=== PATIENT | male | born 1940 | race Caucasian/White ===

== ENCOUNTER 2020-04-12 07:12 | Day surgery (SDC) | payer MEDICARE, OTHER ==
[2020-04-12] MEDS: Polymyxin B/Trimethoprim 10 ML Bottle EYELF SCH ×4 (07:15→08:47)
[2020-04-12] MEDS: Brimonidine 0.2% Ophth Soln 5 ML Bottle EYELF SCH ×4 (07:19→08:47)
[2020-04-12] MEDS: Phenylephrine 2.5% Ophth Soln 2 ML Bot EYELF SCH ×4 (07:23→07:55)
[2020-04-12] MEDS: Tropicamide 1% Ophth Soln 15 ML Bottle EYELF SCH ×4 (07:27→07:59)
[2020-04-12] MEDS: Phenylephrine 2.5% Ophth Soln 15 ML Bot EYELF SCH ×2 (07:31→08:25)
[2020-04-12] MEDS: Cefuroxime 10 MG/ML SYRINGE EYELF SCH ×2 (07:32→08:46)
[2020-04-12] MEDS: Tetracaine HCl/PF 0.5% 4 ML Bottle EYEBOTH SCH ×3 (07:32→08:31)
[2020-04-12] MEDS: Lidocaine 1% PF 2 ML SDV INJECT SCH ×2 (07:32→08:32)
[2020-04-12] MEDS: Pilocarpine 4% Ophth Soln 15 ML Bot EYELF SCH ×2 (07:33→08:47)
--- NOTE | 2020-04-12 07:41 | PCM.PREANE ---
Preanesthetic Assessment - Procedure Proposed Procedure: Left Cataract - Anesthesia/Transfusion/Family Hx Anesthesia History: Prior Anesthesia Without Reaction Family History of Anesthesia Reaction: No Transfusion History: No Prior Transfusion(s) Intubation History: Unknown - Review of Systems General: No Symptoms Pulmonary: No Symptoms (quit smoking 1989) Cardiovascular: No Symptoms (CAD, HTN-CABG times 4) Gastrointestinal: No Symptoms Neurological: No Symptoms Other: Reports: None, Easy Bleeding, Easy Bruising - Physical Assessment NPO Status Date: 04/11/20 NPO Status Time: 21:00 Vital Signs: Last Vital Signs Temp 36.5 C 04/12/20 07:10 Pulse 68 04/12/20 07:10 Resp 16 04/12/20 07:10 BP 129/63 04/12/20 07:10 Pulse Ox 99 04/12/20 07:10 Height: 1.75 m Weight: 68.039 kg ASA Class: 3 Mental Status: Alert & Oriented x3 Airway Class: Mallampati = 2 Dentition: Reports: Dentures (upper and lower) Thyro-Mental Finger Breadths: 3 Mouth Opening Finger Breadths: 3 ROM/Head Extension: Full Lungs: Clear to Auscultation, Normal Respiratory Effort Cardiovascular: Regular Rate, Regular Rhythm, No Murmurs - Allergies Allergies/Adverse Reactions: Allergies Allergy/AdvReac Type Severity Reaction Status Date / Time No Known Allergies Allergy Verified 04/11/20 15:31 - Anesthesia Plan Pre-Op Medication Ordered: None - Acknowledgements Anesthesia Type Planned: MAC Pt an Appropriate Candidate for the Planned Anesthesia: Yes Alternatives and Risks of Anesthesia Discussed w Pt/Guardian: Yes Pt/Guardian Understands and Agrees with Anesthesia Plan: Yes PreAnesthesia Questionnaire - Past Surgical History Other GI Surgeries/Procedures: Stomach ulcer surgery - HOME MEDS Home Medications: Home Meds Warfarin [Coumadin] 5 mg PO DAILY 01/03/15 [History] Lisinopril 5 mg PO DAILY 07/20/15 [History] amLODIPine [Norvasc] 5 mg PO DAILY 07/20/15 [History] Aspirin [Halfprin] 81 mg PO DAILY 04/11/20 [History] Calcium Carb/Vitamin D3/Vit K1 [Calcium + D Soft Chewable Tab] 1 tab PO DAILY [History] Ezetimibe [Zetia] 10 mg PO DAILY 04/11/20 [History] Magnesium Oxide/Magnesium [Magnesium] 300 mg PO DAILY 04/11/20 [History] Multivitamin 1 tab PO DAILY 04/11/20 [History] Turmeric 400 mg PO DAILY 04/11/20 [History] Ubidecarenone [Coq-10] 400 mg PO DAILY 04/11/20 [History] - CURRENT (IN HOUSE) MEDS Current Meds: Current Medications Brimonidine Tartrate (Alphagan 0.2% Ophth Soln) 0 ml EYELF ASDIRECTED LAURA Stop: 04/12/20 18:00 Last Admin: 04/12/20 07:19 Dose: 1 drop Cefuroxime Sodium (Zinacef) 0 mg EYELF ASDIRECTED LAURA Stop: 04/12/20 18:00 Lidocaine HCl (Xylocaine-Mpf 1%) 0 ml INJECT ASDIRECTED LAURA Stop: 04/12/20 18:00 Phenylephrine HCl (Trevor-Synephrine 2.5% Ophth Soln) 0 ml EYELF ASDIRECTED LAURA Stop: 04/12/20 23:00 Last Admin: 04/12/20 07:23 Dose: 1 drop Pilocarpine HCl (Pilocar 4% Ophth Soln) 0 ml EYELF ASDIRECTED LAURA Stop: 04/12/20 18:00 Polymyxin/Trimethoprim Sulfate (Polytrim Ophth Soln) 0 ml EYELF ASDIRECTED LAURA Stop: 04/12/20 18:00 Last Admin: 04/12/20 07:15 Dose: 1 drop Tetracaine HCl (Tetracaine 0.5% Steri-Unit Brianna) 0 ml EYEBOTH ASDIRECTED LAURA Stop: 04/12/20 18:00 Tropicamide (Mydriacyl 1% Ophth Soln) 0 ml EYELF ASDIRECTED LAURA Stop: 04/12/20 18:00 Last Admin: 04/12/20 07:27 Dose: 1 drop Discontinued Medications Phenylephrine HCl (Trevor-Synephrine 2.5% Ophth Soln) 0 ml EYELF ASDIRECTED LAURA Stop: 04/12/20 18:00
--- NOTE | 2020-04-12 08:50 | PCM48HPAN ---
Post Anesthesia Note - EVALUATION WITHIN 48HRS OF ANESTHETIC Vital Signs in Normal Range: Yes Patient Participated in Evaluation: Yes Respiratory Function Stable: Yes Airway Patent: Yes Cardiovascular Function Stable: Yes Hydration Status Stable: Yes Pain Control Satisfactory: Yes Nausea and Vomiting Control Satisfactory: Yes Mental Status Recovered: Yes Vital Signs: Last Vital Signs Temp 36.5 C 04/12/20 07:10 Pulse 68 04/12/20 07:10 Resp 16 04/12/20 07:10 BP 129/63 04/12/20 07:10 Pulse Ox 99 04/12/20 07:10
[2020-04-12 09:04] VITALS: BP 122/66; PULSE 65
== END 2020-04-12 09:00 | disposition home or self-care (01) ==
LOC: JD.SDS 07:12
PROVIDERS: ATTEND Ophthalmology
DX: H25.813 Combined forms of age-related cataract, bilateral (principal); H21.81 Floppy iris syndrome; H21.42 Pupillary membranes, left eye; I10 Essential (primary) hypertension; I25.10 Atherosclerotic heart disease of native coronary artery without angina pectoris; Z95.1 Presence of aortocoronary bypass graft; Z79.01 Long term (current) use of anticoagulants; Z87.891 Personal history of nicotine dependence; Z79.82 Long term (current) use of aspirin; Z79.899 Other long term (current) drug therapy
CPT/HCPCS: 66982; J0697; J2001; C1780

== ENCOUNTER 2020-05-10 07:57 | Day surgery (SDC) | payer MEDICARE, OTHER ==
[~2020-05-10 07:57] MED LIST: Cefuroxime 10 MG/ML SYRINGE EYERT SCH; Lidocaine 1% PF 2 ML SDV INJECT SCH; Pilocarpine 4% Ophth Soln 15 ML Bot EYERT SCH
[2020-05-10] MEDS: Polymyxin B/Trimethoprim 10 ML Bottle EYERT SCH ×3 (08:26→10:35)
[2020-05-10] MEDS: Brimonidine 0.2% Ophth Soln 5 ML Bottle EYERT SCH ×3 (08:31→10:35)
--- NOTE | 2020-05-10 08:32 | PCM.PREANE ---
Preanesthetic Assessment - Procedure Proposed Procedure: Right eye cataract extraction with IOL - Anesthesia/Transfusion/Family Hx Anesthesia History: Prior Anesthesia Without Reaction Family History of Anesthesia Reaction: No Transfusion History: No Prior Transfusion(s) Intubation History: Unknown - Review of Systems General: No Symptoms Pulmonary: No Symptoms Cardiovascular: No Symptoms Gastrointestinal: No Symptoms Neurological: No Symptoms Other: Reports: Easy Bruising - Physical Assessment NPO Status Date: 05/09/20 NPO Status Time: 00:00 Height: 1.75 m Weight: 66.678 kg ASA Class: 2 Mental Status: Alert & Oriented x3 Airway Class: Mallampati = 1 Dentition: Reports: Dentures Thyro-Mental Finger Breadths: 3 Mouth Opening Finger Breadths: 3 ROM/Head Extension: Full Lungs: Clear to Auscultation, Normal Respiratory Effort Cardiovascular: Regular Rate, Regular Rhythm - Allergies Allergies/Adverse Reactions: Allergies Allergy/AdvReac Type Severity Reaction Status Date / Time No Known Allergies Allergy Verified 05/09/20 15:23 - Blood Blood Available: No Product(s) Available: None - Anesthesia Plan Pre-Op Medication Ordered: None - Acknowledgements Anesthesia Type Planned: MAC Pt an Appropriate Candidate for the Planned Anesthesia: Yes Alternatives and Risks of Anesthesia Discussed w Pt/Guardian: Yes Pt/Guardian Understands and Agrees with Anesthesia Plan: Yes PreAnesthesia Questionnaire - Past Surgical History Other GI Surgeries/Procedures: Stomach ulcer surgery - SUBSTANCE USE Smoking Status *Q: Former Smoker Tobacco Use Within Last Twelve Months: No Second Hand Smoke Exposure: No Days Per Week of Alcohol Use: 1 Number of Drinks Per Day: 0 Total Drinks Per Week: 0 Recreational Drug Use History: No - HOME MEDS Home Medications: Home Meds Warfarin [Coumadin] 5 mg PO DAILY 01/03/15 [History] Lisinopril 5 mg PO DAILY 07/20/15 [History] amLODIPine [Norvasc] 5 mg PO DAILY 07/20/15 [History] Aspirin [Halfprin] 81 mg PO DAILY 04/11/20 [History] Calcium Carb/Vitamin D3/Vit K1 [Calcium + D Soft Chewable Tab] 1 tab PO DAILY [History] Ezetimibe [Zetia] 10 mg PO DAILY 04/11/20 [History] Magnesium Oxide/Magnesium [Magnesium] 300 mg PO DAILY 04/11/20 [History] Multivitamin 1 tab PO DAILY 04/11/20 [History] Turmeric 400 mg PO DAILY 04/11/20 [History] Ubidecarenone [Coq-10] 400 mg PO DAILY 04/11/20 [History] - CURRENT (IN HOUSE) MEDS Current Meds: Current Medications Brimonidine Tartrate (Alphagan 0.2% Ophth Soln) 0 ml EYERT ASDIRECTED LAURA Stop: 05/10/20 18:00 Cefuroxime Sodium (Zinacef) 0 mg EYERT ASDIRECTED LAURA Stop: 05/10/20 18:00 Lidocaine HCl (Xylocaine-Mpf 1%) 0 ml INJECT ASDIRECTED LAURA Stop: 05/10/20 18:00 Phenylephrine HCl (Trevor-Synephrine 2.5% Ophth Soln) 0 ml EYERT ASDIRECTED LAURA Stop: 05/10/20 18:00 Pilocarpine HCl (Pilocar 4% Ophth Soln) 0 ml EYERT ASDIRECTED LAURA Stop: 05/10/20 18:00 Polymyxin/Trimethoprim Sulfate (Polytrim Ophth Soln) 0 ml EYERT ASDIRECTED LAURA Stop: 05/10/20 18:00 Tetracaine HCl (Tetracaine 0.5% Steri-Unit Brianna) 0 ml EYEBOTH ASDIRECTED LAURA Stop: 05/10/20 18:00 Tropicamide (Mydriacyl 1% Ophth Soln) 0 ml EYERT ASDIRECTED LAURA Stop: 05/10/20 18:00
[2020-05-10] MEDS: Phenylephrine 2.5% Ophth Soln 2 ML Bot EYERT SCH ×5 (08:35→10:14)
[2020-05-10] MEDS: Tropicamide 1% Ophth Soln 15 ML Bottle EYERT SCH ×4 (08:39→09:20)
[2020-05-10] MEDS: Tetracaine HCl/PF 0.5% 4 ML Bottle EYEBOTH SCH ×4 (09:55→10:21)
--- NOTE | 2020-05-10 10:38 | PCM48HPAN ---
Post Anesthesia Note - EVALUATION WITHIN 48HRS OF ANESTHETIC Vital Signs in Normal Range: Yes Patient Participated in Evaluation: Yes Respiratory Function Stable: Yes Airway Patent: Yes Cardiovascular Function Stable: Yes Hydration Status Stable: Yes Pain Control Satisfactory: Yes Nausea and Vomiting Control Satisfactory: Yes Mental Status Recovered: Yes Vital Signs: Last Vital Signs Temp 36.4 C 05/10/20 08:05 Pulse 59 L 05/10/20 08:05 Resp 18 05/10/20 08:05 BP 135/65 05/10/20 08:05 Pulse Ox 100 05/10/20 08:05
[2020-05-10 10:55] VITALS: BP 126/67; PULSE 66
== END 2020-05-10 10:48 | disposition home or self-care (01) ==
LOC: JD.SDS 07:57
PROVIDERS: ATTEND Ophthalmology
DX: H25.811 Combined forms of age-related cataract, right eye (principal); H40.031 Anatomical narrow angle, right eye; H52.31 Anisometropia; H40.1334 Pigmentary glaucoma, bilateral, indeterminate stage; H21.81 Floppy iris syndrome; H21.41 Pupillary membranes, right eye; Z96.1 Presence of intraocular lens; Z79.82 Long term (current) use of aspirin; Z79.899 Other long term (current) drug therapy; Z98.42 Cataract extraction status, left eye; Z87.891 Personal history of nicotine dependence
CPT/HCPCS: 66982; C1780; J0697; J2001

== ENCOUNTER 2022-01-16 21:35 | Inpatient (IN) | payer MEDICARE, OTHER ==
[2022-01-16] MEDS ORDERED: Ondansetron 4 MG Tab.DIS PO ONE (23:22)
[2022-01-17] MEDS ORDERED: Ondansetron 4 MG/2 ML SDV IVPUSH ONE ×2 (02:11→06:18)
[2022-01-17] MEDS ORDERED: Metoclopramide 10 MG/2 ML SDV IVPUSH ONE (08:30)
[2022-01-17] MEDS ORDERED: Sodium Chloride 0.9% 1,000 ML IV ONE (08:31)
[2022-01-17] MEDS ORDERED: diphenhydrAMINE 50 MG/ML SDV IVPUSH ONE (08:31)
[2022-01-17] MEDS ORDERED: LORazepam 2 MG/ML SDV IV PRN (12:36)
[2022-01-17] MEDS ORDERED: Metoclopramide 10 MG/2 ML SDV IVPUSH PRN (12:46)
[2022-01-17] MEDS ORDERED: Hydrocortisone Sodium Succinate 100 MG/2 ML SDV IVPUSH ONE (13:00)
[2022-01-17] MEDS: Pantoprazole 40 MG Vial IV SCH ×2 (13:21→20:12)
[2022-01-17] MEDS: Dextrose 5%-0.45% NaCl 1,000 ML IV SCH ×2 (13:26→21:16)
[2022-01-17] MEDS ORDERED: Warfarin 5 MG Tab PO SCH (18:00)
[2022-01-17] MEDS ORDERED: EZETIMIBE 10 MG PO SCH (18:00)
[2022-01-18] MEDS: Dextrose 5%-0.45% NaCl 1,000 ML IV SCH ×3 (04:54→21:45)
[2022-01-18] MEDS ORDERED: Furosemide 20 MG Tab ** PATIENT'S OWN MED PO SCH ×2 (08:00→12:37)
[2022-01-18] MEDS ORDERED: VALSARTAN 40 MG PO SCH (08:00)
[2022-01-18] MEDS ORDERED: Metoprolol Succinate 25 MG Tab.ER ** PATIENT'S OWN MED PO SCH (08:00)
[2022-01-18] MEDS: Aspirin 81 MG Tab.EC PO SCH (08:55)
[2022-01-18] MEDS: Pantoprazole 40 MG Vial IV SCH ×2 (08:55→20:08)
[2022-01-18] MEDS ORDERED: Hydrocortisone Sodium Succinate 100 MG/2 ML SDV IVPUSH ONE (11:00)
[2022-01-18] MEDS ORDERED: Warfarin 5 MG Tab PO SCH ×2 (17:51→18:00)
[2022-01-18] MEDS ORDERED: Ezetimibe 10 MG Tab PO SCH (18:00)
[2022-01-18] MEDS ORDERED: Warfarin 2.5 MG Tab PO SCH (18:00)
[2022-01-19] MEDS: Dextrose 5%-0.45% NaCl 1,000 ML IV SCH (05:29)
[2022-01-19] MEDS ORDERED: Furosemide 20 MG Tab PO SCH (08:00)
[2022-01-19] MEDS ORDERED: Metoprolol Succinate 25 MG Tab.ER PO SCH (08:00)
[2022-01-19] MEDS: Aspirin 81 MG Tab.EC PO SCH (08:16)
[2022-01-19 08:17] VITALS: BP 139/71
[2022-01-19] MEDS: Pantoprazole 40 MG Vial IV SCH (08:17)
[2022-01-19] MEDS ORDERED: Losartan 25 MG Tab PO SCH (09:00)
[2022-01-19 11:22] VITALS: PULSE 71
[2022-01-19] MEDS ORDERED: Simethicone 80 MG Tab.Chew PO ONE (13:09)
== END 2022-01-19 14:15 | disposition home or self-care (01) | DRG 149 ==
LOC: JD.ED 21:35 → JD.ICU 01-17 10:16 → OBSVTOIN 01-17 12:26
PROVIDERS: ADMIT Pediatrics; ATTEND Pediatrics
DX: H81.10 Benign paroxysmal vertigo, unspecified ear (principal); I48.20 Chronic atrial fibrillation, unspecified; I13.0 Hypertensive heart and chronic kidney disease with heart failure and stage 1 through stage 4 chronic kidney disease, or unspecified chronic kidney disease; R11.10 Vomiting, unspecified; I25.810 Atherosclerosis of coronary artery bypass graft(s) without angina pectoris; Z20.822 Contact with and (suspected) exposure to COVID-19; E78.00 Pure hypercholesterolemia, unspecified; I50.9 Heart failure, unspecified; N18.9 Chronic kidney disease, unspecified; J44.9 Chronic obstructive pulmonary disease, unspecified; R47.81 Slurred speech; E78.5 Hyperlipidemia, unspecified; M19.90 Unspecified osteoarthritis, unspecified site; Z88.8 Allergy status to other drugs, medicaments and biological substances; Z79.82 Long term (current) use of aspirin; Z79.01 Long term (current) use of anticoagulants; Z90.49 Acquired absence of other specified parts of digestive tract; Z87.891 Personal history of nicotine dependence; Z79.899 Other long term (current) drug therapy; I25.2 Old myocardial infarction
CPT/HCPCS: 36415; 80053; 82607; 83735; 85025; 85610; 93005; 96374; 96375; 96376; 99285; A9270; J1200; J2405 ×2; J2765; J7030; U0002; 70450; 70450-26; 80048; 82306; 93010; 95992-GP; 97110-GP; 97112-GP; 97162-GP; 97530-GP; C9113; G0378; J1720; J7042

== ENCOUNTER 2023-01-27 12:48 | Inpatient (IN) | payer MEDICARE, OTHER ==
[2023-01-27] MEDS ORDERED: Ondansetron 4 MG/2 ML SDV IVPUSH ONE (13:24)
[2023-01-27] MEDS ORDERED: Sodium Chloride 0.9% 10 ML Syringe FLUSH PRN (13:24)
[2023-01-27] MEDS ORDERED: Sodium Chloride 0.9% 1,000 ML IV SCH ×3 (13:30→22:15)
[2023-01-27 14:42] LABS: CORONAVIRUS COVID-19 NAA NEGATIVE (NEGATIVE)
[2023-01-27] MEDS ORDERED: Lidocaine 1% 10 ML MDV INJECT ONE (17:19)
[2023-01-27] MEDS ORDERED: Lidocaine 1% 10 ML MDV ONE (17:19)
[2023-01-27] MEDS ORDERED: Ondansetron 4 MG/2 ML SDV IVPUSH PRN (20:10)
[2023-01-27] MEDS ORDERED: Acetaminophen/oxyCODONE 325-5 MG Tab PO PRN (20:10)
[2023-01-27] MEDS ORDERED: Acetaminophen 325 MG Tab PO PRN ×2 (20:10→23:42)
[2023-01-27] MEDS: Oxybutynin 5 MG Tab PO SCH (21:48)
[2023-01-27] MEDS ORDERED: Warfarin 5 MG Tab PO SCH (22:07)
[2023-01-27] MEDS: Ezetimibe 10 MG Tab PO SCH (22:30)
[2023-01-28] MEDS: Aspirin 81 MG Tab.EC PO SCH (08:01)
[2023-01-28] MEDS ORDERED: Albuterol 0.083% 2.5 MG/3 ML Neb Soln NEB PRN (08:49)
[2023-01-28] MEDS: Sodium Bicarbonate 650 MG Tab PO SCH (09:31)
[2023-01-28] MEDS: Ezetimibe 10 MG Tab PO SCH (17:05)
[2023-01-28] MEDS ORDERED: Warfarin 5 MG Tab PO SCH (18:00)
[2023-01-28] MEDS ORDERED: Warfarin 3 MG Tab PO SCH (18:00)
[2023-01-28] MEDS ORDERED: Ezetimibe 10 MG Tab PO SCH (18:00)
[2023-01-28] MEDS: Oxybutynin 5 MG Tab PO SCH (20:23)
[2023-01-29] MEDS: Aspirin 81 MG Tab.EC PO SCH (08:23)
[2023-01-29] MEDS: Metoprolol Succinate 25 MG Tab.ER PO SCH (08:23)
[2023-01-29] MEDS: Sodium Bicarbonate 650 MG Tab PO SCH (08:23)
[2023-01-29] MEDS: Furosemide 20 MG Tab PO SCH (08:23)
[2023-01-29] MEDS: Ezetimibe 10 MG Tab PO SCH (17:23)
[2023-01-29] MEDS ORDERED: Warfarin 5 MG Tab PO SCH (18:00)
[2023-01-29] MEDS: Oxybutynin 5 MG Tab PO SCH (20:36)
[2023-01-30 04:12] VITALS: PULSE 63
[2023-01-30] MEDS ORDERED: Magnesium Sulfate/Water 2 GM in Premix Bag 1 BAG IV ONE (08:15)
[2023-01-30] MEDS: Metoprolol Succinate 25 MG Tab.ER PO SCH (08:19)
[2023-01-30] MEDS: Aspirin 81 MG Tab.EC PO SCH (08:20)
[2023-01-30] MEDS: Furosemide 20 MG Tab PO SCH (08:20)
[2023-01-30] MEDS: Sodium Bicarbonate 650 MG Tab PO SCH (08:20)
[2023-01-30 08:21] VITALS: BP 126/60
[2023-01-30] MEDS ORDERED: Warfarin 4 MG Tab PO SCH (18:00)
== END 2023-01-30 10:30 | disposition home or self-care (01) | DRG 200 ==
LOC: JD.ED 12:48 → JD.MS 18:59
PROVIDERS: ADMIT Internal Medicine; ATTEND Internal Medicine
PROC: 0W9930Z Drainage of Right Pleural Cavity with Drainage Device, Percutaneous Approach (ICD-10-PCS; principal; 2023-01-27)
PROC: 0WP930Z Removal of Drainage Device from Right Pleural Cavity, Percutaneous Approach (ICD-10-PCS; 2023-01-29)
DX: J93.83 Other pneumothorax (principal); I13.0 Hypertensive heart and chronic kidney disease with heart failure and stage 1 through stage 4 chronic kidney disease, or unspecified chronic kidney disease; J90 Pleural effusion, not elsewhere classified; R53.1 Weakness; I50.9 Heart failure, unspecified; I25.10 Atherosclerotic heart disease of native coronary artery without angina pectoris; E78.00 Pure hypercholesterolemia, unspecified; I10 Essential (primary) hypertension; Z20.822 Contact with and (suspected) exposure to COVID-19; N18.32 Chronic kidney disease, stage 3b; M15.9 Polyosteoarthritis, unspecified; R19.7 Diarrhea, unspecified; E86.0 Dehydration; I48.91 Unspecified atrial fibrillation; J44.9 Chronic obstructive pulmonary disease, unspecified; Z95.1 Presence of aortocoronary bypass graft; Z95.0 Presence of cardiac pacemaker; Z87.891 Personal history of nicotine dependence; Z87.11 Personal history of peptic ulcer disease; Z98.890 Other specified postprocedural states; I25.2 Old myocardial infarction; Z79.82 Long term (current) use of aspirin; Z79.899 Other long term (current) drug therapy; Z79.01 Long term (current) use of anticoagulants; Z91.041 Radiographic dye allergy status; Z90.49 Acquired absence of other specified parts of digestive tract
CPT/HCPCS: 0241U; 36415; 71045; 71045-26; 71250; 71250-26; 80048; 80053; 83605; 83690; 83735; 83880; 84484; 85025; 85610; 86140; 87045; 87046; 87899; 93005; 93010; 93307; 96361; 96374; 97116-GP; 97162-GP; 97166-GO; 99285; 99285-25; A9270-GY; C1729; J2405; J3475; J3490; J7030

== ENCOUNTER 2023-07-24 09:36 | Day surgery (SDC) | payer MEDICARE, OTHER ==
[~2023-07-24 09:36] MED LIST changes: +Acetaminophen 325 MG Tab PO SCH; -Cefuroxime 10 MG/ML SYRINGE EYERT SCH; +Lactated Ringers 1,000 ML IV SCH; -Lidocaine 1% PF 2 ML SDV INJECT SCH; -Pilocarpine 4% Ophth Soln 15 ML Bot EYERT SCH; +Sodium Chloride 0.9% 10 ML Syringe FLUSH PRN; +Sodium Chloride 0.9% 10 ML Syringe FLUSH SCH
[2023-07-24] MEDS ORDERED: Lidocaine 1% 30 ML SDV ONE (09:52)
[2023-07-24] MEDS ORDERED: Bupivacaine 0.5%/EPINEPHrine 1:200,000 50 ML MDV ONE (09:52)
[2023-07-24] MEDS ORDERED: Propofol 200 MG/20 ML SDV ONE (10:09)
[2023-07-24] MEDS ORDERED: fentaNYL 100 MCG/2 ML SDV ONE (10:10)
[2023-07-24] MEDS ORDERED: Succinylcholine 200 MG/10 ML MDV ONE (10:12)
[2023-07-24] MEDS ORDERED: Lidocaine 1% 6 ML ONE (10:12)
[2023-07-24 10:21] LABS: INR 1.03
[2023-07-24] MEDS ORDERED: ceFAZolin 2 GM Vial ONE (10:47)
[2023-07-24 18:10] VITALS: PULSE 60
[2023-07-24 18:11] VITALS: BP 119/61
== END 2023-07-24 13:30 | disposition home or self-care (01) ==
LOC: JD.SDS 09:36
PROVIDERS: ATTEND Surgery
DX: K40.91 Unilateral inguinal hernia, without obstruction or gangrene, recurrent (principal); I11.0 Hypertensive heart disease with heart failure; I50.9 Heart failure, unspecified; I27.20 Pulmonary hypertension, unspecified; I49.5 Sick sinus syndrome; E78.00 Pure hypercholesterolemia, unspecified; J44.9 Chronic obstructive pulmonary disease, unspecified; I48.91 Unspecified atrial fibrillation; I25.10 Atherosclerotic heart disease of native coronary artery without angina pectoris; Z90.49 Acquired absence of other specified parts of digestive tract; Z79.01 Long term (current) use of anticoagulants; Z98.890 Other specified postprocedural states; Z79.899 Other long term (current) drug therapy; Z79.82 Long term (current) use of aspirin; Z88.8 Allergy status to other drugs, medicaments and biological substances; Z87.891 Personal history of nicotine dependence; Z95.1 Presence of aortocoronary bypass graft
CPT/HCPCS: 36415; 49520; 64425; 85610; A9270; C1781; J0690; J2704; J3010; J3490; J7120; 00830; 99100; J0330

== ENCOUNTER 2023-11-22 11:19 | Emergency (ER) | payer MEDICARE, OTHER ==
[2023-11-22] MEDS ORDERED: Sodium Chloride 0.9% 10 ML Syringe FLUSH PRN (11:45)
[2023-11-22 12:30] LABS: BASOPHILS PERCENT AUTO 0.2 % (0.0-1.0); HEMATOCRIT 39.4 % (42.0-52.0); HEMOGLOBIN 12.9 gm/dl (14.0-18.0); IMMATURE GRAN ABSOLUTE AUTO 0.02 K/mm3 (0.00-0.05); IMMATURE GRAN PERCENT AUTO 0.4 % (0.0-0.4); LYMPHOCYTES ABSOLUTE AUTO 0.1 K/mm3 (1.0-4.8); LYMPHOCYTES PERCENT AUTO 0.9 % (24.0-44.0); MEAN CORPUSCULAR HEMOGLOBIN 28.9 pg (28.0-32.0); MEAN CORPUSCULAR HGB CONC 32.7 g/dl (32.0-36.0); MEAN CORPUSCULAR VOLUME 88.3 fl (83.0-99.0); MEAN PLATELET VOLUME 8.9 fl (9.4-12.4); MONOCYTES ABSOLUTE AUTO 0.1 K/mm3 (0.0-0.8); MONOCYTES PERCENT AUTO 1.6 % (0.0-8.0); NEUTROPHILS ABSOLUTE AUTO 5.4 K/mm3 (1.8-7.7); NEUTROPHILS PERCENT AUTO 96.9 % (41.0-71.0); PLATELET COUNT,PLT 154 K/mm3 (150-400); RED BLOOD CELL COUNT 4.46 M/mm3 (4.52-5.90); WHITE BLOOD CELL COUNT,WBC 5.59 K/mm3 (3.9-11.3)
[2023-11-22 12:43] LABS: CORONAVIRUS COVID-19 NAA NEGATIVE (NEGATIVE); INFLUENZA A NAA NEGATIVE (NEGATIVE); RESPIRATORY SYNCYTIAL VIR NAA NEGATIVE (NEGATIVE)
[2023-11-22 12:48] LABS: SLIDE REVIEW ABNORMAL SMEAR
[2023-11-22 12:54] LABS: A/G RATIO 0.8 (1-2); ALBUMIN 3.6 g/dl (3.4-5.0); ANION GAP 12.6 (5-15); BUN/CREATININE RATIO 26.8 (14-18); C-REACTIVE PROTEIN 3.2 mg/dL (<1.0); CALCIUM 10.4 mg/dL (8.5-10.1); CREATININE 1.9 mg/dL (0.7-1.3); EST CRCL DRUG DOSING (CG) 23.46 mL/min; POTASSIUM,K 3.6 mEq/L (3.5-5.1); PROTEIN TOTAL,TP 8.4 g/dl (6.4-8.2)
[2023-11-22 13:08] LABS: INR 2.97; PROTHROMBIN TIME 29.3 SECONDS (9.7-12.0)
[2023-11-22] MEDS ORDERED: Sodium Chloride 0.9% 1,000 ML IV STA (13:09)
[2023-11-22 14:24] LABS: APPEARANCE,URINE CLEAR (Clear); BILIRUBIN,URINE NEGATIVE (Negative); COLOR,URINE YELLOW (Yellow); GLUCOSE,URINE NEGATIVE (Negative); KETONES,URINE NEGATIVE (Negative); LEUKOCYTE ESTERASE,URINE NEGATIVE (Negative); NITRITE,URINE NEGATIVE (Negative); OCCULT BLOOD,URINE 1+ (Negative); PROTEIN,URINE NEGATIVE (Negative); UROBILINOGEN,URINE 0.2 (0.2-1.0)
[2023-11-22 14:38] LABS: BACTERIA,URINE FEW /hpf (FEW); SQUAMOUS EPITHELIAL CELLS,UR 0-5 /hpf (0-5); WBC,URINE 0-5 /hpf (0-5)
[2023-11-22 14:39] LABS: MUCUS,URINE FEW /hpf (FEW)
[2023-11-22 15:59] VITALS: BP 138/62; PULSE 73
== END 2023-11-22 15:37 | disposition home or self-care (01) ==
LOC: JD.ED 11:19
DX: A08.4 Viral intestinal infection, unspecified (principal); J44.9 Chronic obstructive pulmonary disease, unspecified; E78.00 Pure hypercholesterolemia, unspecified; Z95.1 Presence of aortocoronary bypass graft; Z79.01 Long term (current) use of anticoagulants; Z87.891 Personal history of nicotine dependence; Z79.82 Long term (current) use of aspirin; Z79.899 Other long term (current) drug therapy; Z88.8 Allergy status to other drugs, medicaments and biological substances
CPT/HCPCS: 0241U; 36415; 70450; 80053; 81001; 82272; 85025; 85610; 86140; 96360; 96361; 99284; J3490; J7030

== ENCOUNTER 2024-03-24 13:11 | Inpatient (IN) | payer MEDICARE, OTHER ==
[2024-03-24 14:57] LABS: BASOPHILS PERCENT AUTO 0.2 % (0.0-1.0); HEMATOCRIT 38.6 % (42.0-52.0); HEMOGLOBIN 12.7 gm/dl (14.0-18.0); IMMATURE GRAN ABSOLUTE AUTO 0.01 K/mm3 (0.00-0.05); IMMATURE GRAN PERCENT AUTO 0.2 % (0.0-0.4); LYMPHOCYTES ABSOLUTE AUTO 0.2 K/mm3 (1.0-4.8); LYMPHOCYTES PERCENT AUTO 3.3 % (24.0-44.0); MEAN CORPUSCULAR HEMOGLOBIN 29.3 pg (28.0-32.0); MEAN CORPUSCULAR HGB CONC 32.9 g/dl (32.0-36.0); MEAN CORPUSCULAR VOLUME 88.9 fl (83.0-99.0); MONOCYTES ABSOLUTE AUTO 0.4 K/mm3 (0.0-0.8); MONOCYTES PERCENT AUTO 6.7 % (0.0-8.0); NEUTROPHILS PERCENT AUTO 89.6 % (41.0-71.0); PLATELET COUNT,PLT 151 K/mm3 (150-400); RED BLOOD CELL COUNT 4.34 M/mm3 (4.52-5.90); WHITE BLOOD CELL COUNT,WBC 5.52 K/mm3 (3.9-11.3)
[2024-03-24 15:30] LABS: A/G RATIO 0.8 (1-2); ALBUMIN 3.3 g/dl (3.4-5.0); ANION GAP 15.2 (5-15); BILIRUBIN TOTAL 1.1 mg/dL (0.2-1.0); BUN/CREATININE RATIO 21.8 (14-18); C-REACTIVE PROTEIN 12.04 mg/dL (<0.30); CALCIUM 10.5 mg/dL (8.5-10.1); CREATININE 1.7 mg/dL (0.7-1.3); EST CRCL DRUG DOSING (CG) 23.04 mL/min; POTASSIUM,K 4.2 mEq/L (3.5-5.1); PROTEIN TOTAL,TP 7.6 g/dl (6.4-8.2)
[2024-03-24 15:45] LABS: LACTIC ACID 2.2 mmol/L (0.4-2.0)
[2024-03-24 16:16] LABS: CORONAVIRUS COVID-19 NAA NEGATIVE (NEGATIVE); INFLUENZA A NAA NEGATIVE (NEGATIVE); RESPIRATORY SYNCYTIAL VIR NAA NEGATIVE (NEGATIVE)
[2024-03-24 17:08] LABS: INR 3.31; PROTHROMBIN TIME 32.4 SECONDS (9.7-12.0)
[2024-03-24] MEDS: cefTRIAXone 2 GM Vial ONE (17:10)
[2024-03-24] MEDS: cefTRIAXone 2 GM in Sodium Chloride 0.9% 100 ML IV ONE (17:10)
[2024-03-24] MEDS: Sodium Chloride 0.9% 100 ML ONE (17:10)
[2024-03-24] MEDS: Sodium Chloride 0.9% 1,000 ML ONE (17:10)
[2024-03-24] MEDS: Sodium Chloride 0.9% 1,000 ML IV ONE (17:10)
[2024-03-24 17:25] LABS: APPEARANCE,URINE CLEAR (Clear); BILIRUBIN,URINE 1+ (Negative); COLOR,URINE YELLOW (Yellow); GLUCOSE,URINE NEGATIVE (Negative); KETONES,URINE NEGATIVE (Negative); LEUKOCYTE ESTERASE,URINE NEGATIVE (Negative); NITRITE,URINE NEGATIVE (Negative); OCCULT BLOOD,URINE 2+ (Negative); PH,URINE 5.5 (5.0-8.0); PROTEIN,URINE 2+ (Negative); UROBILINOGEN,URINE 0.2 (0.2-1.0)
[2024-03-24 18:02] LABS: RBC,URINE 40-50 /hpf (0-5); SQUAMOUS EPITHELIAL CELLS,UR 0-5 /hpf (0-5); WBC,URINE 0-5 /hpf (0-5)
[2024-03-24 18:03] LABS: BACTERIA,URINE FEW /hpf (FEW); MUCUS,URINE MANY /hpf (FEW)
[2024-03-24] MEDS ORDERED: Warfarin 5 MG Tab PO SCH (20:00)
[2024-03-24 20:30] LABS: INR 3.43; PROTHROMBIN TIME 33.5 SECONDS (9.7-12.0)
[2024-03-25] MEDS ORDERED: Aspirin 81 MG Tab.EC PO SCH (08:00)
[2024-03-25] MEDS ORDERED: Metoprolol Succinate 25 MG Tab.ER PO SCH (08:00)
[2024-03-25] MEDS ORDERED: Furosemide 20 MG Tab PO SCH (08:00)
[2024-03-25] MEDS: Sodium Bicarbonate 650 MG Tab PO SCH (08:36)
[2024-03-25] MEDS: Furosemide 20 MG Tab PO SCH (08:36)
[2024-03-25] MEDS: Magnesium Oxide 400 MG Tab PO SCH (08:36)
[2024-03-25] MEDS: Aspirin 81 MG Tab.EC PO SCH (08:36)
[2024-03-25] MEDS: Metoprolol Succinate 25 MG Tab.ER PO SCH (08:37)
[2024-03-25] MEDS ORDERED: VALSARTAN 40 MG PO SCH (09:00)
[2024-03-25] MEDS ORDERED: Albuterol 6.7 GM Inhaler INH PRN (09:18)
[2024-03-25 10:11] LABS: A/G RATIO 0.8 (1-2); ALBUMIN 3.1 g/dl (3.4-5.0); ANION GAP 12.2 (5-15); BILIRUBIN TOTAL 0.6 mg/dL (0.2-1.0); BUN/CREATININE RATIO 26.7 (14-18); CALCIUM 10.3 mg/dL (8.5-10.1); CREATININE 1.5 mg/dL (0.7-1.3); EST CRCL DRUG DOSING (CG) 25.59 mL/min; POTASSIUM,K 4.2 mEq/L (3.5-5.1); PROTEIN TOTAL,TP 7.2 g/dl (6.4-8.2)
[2024-03-25 13:38] LABS: INR 3.14; PROTHROMBIN TIME 30.9 SECONDS (9.7-12.0)
[2024-03-25] MEDS: Warfarin 2.5 MG Tab PO SCH (18:03)
[2024-03-25] MEDS: cefTRIAXone 1 GM in Sodium Chloride 0.9% 100 ML IV SCH (18:03)
[2024-03-25] MEDS: Megestrol Susp 40 MG/ML 10 ML UD Cup PO SCH (18:03)
[2024-03-25] MEDS: Sacubitril/Valsartan 1 EACH Tablet PO SCH (20:57)
[2024-03-25] MEDS: Sertraline 50 MG Tab PO SCH (20:58)
[2024-03-26 05:13] LABS: INR 2.66; PROTHROMBIN TIME 26.5 SECONDS (9.7-12.0)
[2024-03-26] MEDS: Tiotropium Bromide 4 GM Inhalation Spray (2.5mcg/1 dose; 10 doses) INH SCH (08:19)
[2024-03-26] MEDS: Multivitamin Tab PO SCH (08:48)
[2024-03-26 08:51] VITALS: BP 130/74; PULSE 65
[2024-03-26] MEDS ORDERED: Warfarin 5 MG Tab PO SCH (18:00)
== END 2024-03-26 12:16 | disposition home or self-care (01) | DRG 193 ==
LOC: JD.ED 13:11 → JD.MS 18:13
PROVIDERS: ADMIT Pediatrics; ATTEND Pediatrics
DX: J18.9 Pneumonia, unspecified organism (principal); E43 Unspecified severe protein-calorie malnutrition; J96.01 Acute respiratory failure with hypoxia; J44.0 Chronic obstructive pulmonary disease with (acute) lower respiratory infection; Z68.1 Body mass index [BMI] 19.9 or less, adult; I48.20 Chronic atrial fibrillation, unspecified; N18.9 Chronic kidney disease, unspecified; I50.9 Heart failure, unspecified; I25.10 Atherosclerotic heart disease of native coronary artery without angina pectoris; Z66 Do not resuscitate; I25.2 Old myocardial infarction; G30.9 Alzheimer's disease, unspecified; F02.80 Dementia in other diseases classified elsewhere, unspecified severity, without behavioral disturbance, psychotic disturbance, mood disturbance, and anxiety; D63.1 Anemia in chronic kidney disease; M19.90 Unspecified osteoarthritis, unspecified site; C80.1 Malignant (primary) neoplasm, unspecified; Z95.0 Presence of cardiac pacemaker; Z95.1 Presence of aortocoronary bypass graft; Z97.3 Presence of spectacles and contact lenses; Z88.8 Allergy status to other drugs, medicaments and biological substances; Z87.11 Personal history of peptic ulcer disease; Z79.82 Long term (current) use of aspirin; Z90.49 Acquired absence of other specified parts of digestive tract; Z79.01 Long term (current) use of anticoagulants; Z87.891 Personal history of nicotine dependence; Z79.899 Other long term (current) drug therapy
CPT/HCPCS: 0241U; 36415; 71045; 71045-26; 71250; 71250-26; 80053; 81001; 83605; 83880; 85025; 85379; 85610; 86140; 87040; 87899; 94640; 94667; 94668; 94760; 94761; 96365; 97110-GP; 97161-GP; 99232; 99239; 99284; 99285-25; A9270-GY; C1758; J0696; J3490; J7030